=== PATIENT | male | born 1950 | race Caucasian/White ===

== ENCOUNTER → 2017-03-28 | Outpatient (CLI) | payer BC, OTHER | END | disposition home or self-care (01) | LOC: PCVCCLINIC 11:32 | PROVIDERS: ATTEND Internal Medicine Cardiovascular Disease | DX: I10 Essential (primary) hypertension (principal); E78.5 Hyperlipidemia, unspecified; R00.1 Bradycardia, unspecified; R94.31 Abnormal electrocardiogram [ECG] [EKG]; Z87.891 Personal history of nicotine dependence; Z79.899 Other long term (current) drug therapy; Z79.82 Long term (current) use of aspirin | CPT/HCPCS: 80061; 93005; G0463 ==

== ENCOUNTER → 2017-10-05 | Outpatient (CLI) | payer BC, OTHER ==
[~2017-10-05] MED LIST: ONDANSETRON PF 4 MG/2 ML VIAL.
== END | disposition home or self-care (01) ==
LOC: PCVCIMAG 12:54
DX: I10 Essential (primary) hypertension (principal); E78.5 Hyperlipidemia, unspecified
CPT/HCPCS: 93325; 93351; J2405

== ENCOUNTER → 2018-10-04 | Outpatient (CLI) | payer BC, OTHER | END | disposition home or self-care (01) | LOC: PCVCCLINIC 13:00 | PROVIDERS: ATTEND Internal Medicine Cardiovascular Disease | DX: I10 Essential (primary) hypertension (principal); E78.00 Pure hypercholesterolemia, unspecified; G47.33 Obstructive sleep apnea (adult) (pediatric); Z99.89 Dependence on other enabling machines and devices; M10.9 Gout, unspecified; Z87.891 Personal history of nicotine dependence; Z88.5 Allergy status to narcotic agent | CPT/HCPCS: 36415; 80061; 93005; G0463 ==

== ENCOUNTER → 2019-03-26 | Outpatient (CLI) | payer MEDICARE, BC, OTHER ==
--- NOTE | 2019-03-26 11:45 | PCVCIMAG ---
APPROVED REPORT Study performed: 03/26/2019 10:42:37 Exam: Stress Echocardiogram Indication: Palpitations, elevated ca score, htn Patient Location: Echo lab Stress Nurse: Janis Olivera RN Status: routine Ht: 6 ft 2 in HR: 67 bpm BP: 148/72 mmHg Rhythm: NSR Procedure The patient underwent an Exercise Stress Test using the Delano Protocol. Blood pressure, heart rate, and EKG were monitored. An Echocardiogram was performed by orthodontic laboratory technician in four stages in quad fashion. At peak stress, four selected images were obtained and placed side by side with resting images for comparison. Stress Test Details Stress Test: Exercise stress testing was performed using a Delano protocol. HR Resting HR: 67 bpmMax Heart Rate (APMHR): 153 bpm Max HR Achieved: 137 bpmTarget HR (85% APMHR): 130 bpm % of APMHR: 89 Recovery HR: 75 bpm HR response to stress: Normal HR response to stress BP Resting BP: 148/72 mmHg Max BP: 186/64 mmHg Recovery BP: 140/60 mmHg BP response to stress: Normal blood pressure response to stress. ECG Resting ECG: Sinus Rhythm Stress ECG: Sinus Rhythm ST Change: Normal Arrhythmia: occasional PACs Recovery ECG: Sinus Rhythm Recovery ST Change: Normal Recovery Arrhythmia: occasional PACs Clinical Reason for Termination: Maximal effort Stress Symptoms: Dyspnea Exercise duration: 7 min 25 sec Highest Stage Achieved: Stage 3: 3.4 mph at 14% grade. Exercise capacity: 10.1 METs Overall Exercise Capacity for Age: Normal Scale: Active Angina Score: None Pre-Stress Echo The resting Echocardiogram showed normal left ventricular contractility with an estimated Ejection Fraction of about >55%. The resting echocardiogram demonstrated normal wall motion in all wall segments. Post-Stress Echo The stress Echocardiogram showed normal left ventricular contractility with an estimated Ejection Fraction of about 65%. Compared to rest, there were no stress-induced wall motion abnormalities. Clinical No clinical or ECG evidence for ischemia. Conclusion Clinical Response: Non-ischemic Exercise Capacity: Average Stress ECG Response: Non-ischemic Stress Echo Images: Non-ischemic The left ventricle is normal in size and wall thickness in both the rest and stress images. Minimal aortic stenosis with JIM of 2.4 cm2 and mean gradient 12 mmHg, peak gradient 25 mmHg. Mild mitral regurgitation. Normal pulmonic and tricuspid valves. Other Information Study Quality: Adequate <Conclusion> The left ventricle is normal in size and wall thickness in both the rest and stress images. Minimal aortic stenosis with JIM of 2.4 cm2 and mean gradient 12 mmHg, peak gradient 25 mmHg. Mild mitral regurgitation. Normal pulmonic and tricuspid valves.
== END | disposition home or self-care (01) ==
LOC: PCVCIMAG 10:53
PROVIDERS: ATTEND Internal Medicine Cardiovascular Disease
DX: R00.2 Palpitations (principal); R93.1 Abnormal findings on diagnostic imaging of heart and coronary circulation; I10 Essential (primary) hypertension
CPT/HCPCS: 93325; 93351